=== PATIENT | male | born 1955 | race Caucasian/White ===

== ENCOUNTER 2017-06-18 04:06 | Inpatient (IN) | payer MEDICAID ==
[~2017-06-18] VITALS: Ht 188 cm; Wt 82.6 kg
[2017-06-18] MEDS ORDERED: IPRATROPIUM BROMIDE (0.02%) 0.5MG/2.5ML NEB HHN STA (05:51)
[2017-06-18] MEDS ORDERED: METHYLPREDNISOLONE SOD SUCC 125 MG/2 ML VIAL IV STA (05:51)
[2017-06-18] MEDS ORDERED: ALBUTEROL (0.083%) 2.5MG/3ML NEB HHN STA (05:51)
[2017-06-18] MEDS ORDERED: ASPIRIN 81MG TABLET PO ONE (06:00)
[2017-06-18] MEDS ORDERED: MAGNESIUM 2 G PREMIX 50 ML IV ONE (06:00)
[2017-06-18] MEDS ORDERED: LEVOFLOXACIN 750MG PREMIX 150 ML IV ONE (06:00)
[2017-06-18] MEDS ORDERED: NITROGLYCERIN OINT 1GM/INCH UDPKT TD ONE (06:00)
[2017-06-18 06:28] LABS: BASOPHILS % 0.3 % (0.0-2.0); EOSINOPHILS % 0.1 % (0.0-5.0); HEMATOCRIT. 28.9 % (42.0-52.0); HEMOGLOBIN. 9.6 g/dL (14.0-18.0); LYMPHOCYTES % 8.3 % (20.0-50.0); MEAN CORPUSCULAR HEMOGLOBIN 31.1 pg (28.0-32.0); MEAN CORPUSCULAR VOLUME 93.7 fL (80.0-94.0); MEAN PLATELET VOLUME 8.2 fl (7.4-10.4); MONOCYTES % 7.5 % (2.0-8.0); NEUTROPHILS % 83.8 % (40.0-76.0); PLATELET 410 x1000/uL (130-400); RED BLOOD CELL COUNT 3.09 mill/uL (4.7-6.1)
[2017-06-18 06:34] LABS: CHLORIDE 111 mEq/L (98-107)
[2017-06-18 06:35] LABS: INR 1.1; PROTHROMBIN TIME 11.4 sec (9.4-11.6)
[2017-06-18 06:38] LABS: ETHANOL BLOOD < 10 mg/dL
[2017-06-18 06:58] LABS: BG BASE EXCESS -13.7 mmol/L (-2.0-2.0); BG FRACTION INSPIRED OXYGEN 40; BG HCO3 ACT 13.9 mmol/L (22.0-26.0); BG METHEMOGLOBIN 0.2 % (0.0-1.5); BG OXYHEMOGLOBIN 97.8 % (94.0-97.0); BG PCO2 38.9 mmHg (35.0-45.0); BG PH 7.172 (7.350-7.450); BG PO2 133.4 mmHg (75.0-100.0); BG SAMPLE SITE RIGHT RADIAL; BG TOTAL HEMOGLOBIN 10.3 g/dL (12.0-18.0); BG VENT MODE MASK - SIMPLE
[2017-06-18] MEDS ORDERED: FUROSEMIDE 100MG/10ML VIAL IV STA (07:17)
[2017-06-18] MEDS ORDERED: SODIUM POLYSTYRENE SULFONATE 15 G/60 ML BOT PO ONE (07:30)
[2017-06-18] MEDS ORDERED: SODIUM BICARBONATE 8.4% 1 MEQ/ML 50ML SYR IV ONE (07:30)
[2017-06-18] MEDS ORDERED: DEXTROSE 50% WATER 50ML SYRINGE IV ONE (07:30)
[2017-06-18] MEDS ORDERED: CALCIUM CHLORIDE 1GM/10ML SYR IV ONE (07:30)
[2017-06-18] MEDS ORDERED: INSULIN REGULAR (HUMULIN R) 300UNITS/3ML IV ONE (07:30)
[2017-06-18] MEDS ORDERED: LIDOCAINE HCL/PF 1% 10 MG/ML 5ML VIAL ONE (08:16)
[2017-06-18] MEDS ORDERED: SODIUM POLYSTYRENE SULFONATE 15 G/60 ML BOT PR ONE (08:45)
[2017-06-18 09:09] LABS: BG BASE EXCESS -10.6 mmol/L (-2.0-2.0); BG BILEVEL POS AIRWAY PRESSURE ST=15/5; BG CARBOXYHEMOGLOBIN 0.3 % (0.5-1.5); BG DEOXYHEMOGLOBIN 0.9 % (0.0-5.0); BG FRACTION INSPIRED OXYGEN 50; BG HCO3 ACT 15.7 mmol/L (22.0-26.0); BG METHEMOGLOBIN 0.3 % (0.0-1.5); BG OXYGEN SATURATION 99.1 % (92.0-98.5); BG OXYHEMOGLOBIN 98.5 % (94.0-97.0); BG PCO2 36.5 mmHg (35.0-45.0); BG PH 7.251 (7.350-7.450); BG PO2 238.6 mmHg (75.0-100.0); BG PRESSURE SUPPORT 10; BG SAMPLE SITE RIGHT RADIAL; BG TOTAL HEMOGLOBIN 9.2 g/dL (12.0-18.0); BG VENT MODE MASK - BIPAP; BG VENT RATE 12 set
[2017-06-18] MEDS ORDERED: HYDROCODONE/ACETAMINOPHEN 5/325MG TABLET PO PRN (10:30)
[2017-06-18] MEDS ORDERED: ONDANSETRON HCL 4MG/2ML VIAL IV PRN (10:30)
[2017-06-18] MEDS ORDERED: DOCUSATE SODIUM 100MG CAPSULE PO PRN (10:30)
[2017-06-18] MEDS ORDERED: MAGNESIUM/ALUMINUM HYDROXIDE/SIMETHICONE 30ML UDC PO PRN (10:30)
[2017-06-18] MEDS ORDERED: NA PHOS,M-B/NA PHOS,DI-BA ENEMA 118ML PR PRN (10:30)
[2017-06-18] MEDS ORDERED: DIPHENHYDRAMINE 50MG/ML VIAL IV PRN (10:30)
[2017-06-18] MEDS ORDERED: MORPHINE SULFATE 4 MG/ML CPJ (NOT FOR IM USE) IV PRN (10:30)
[2017-06-18] MEDS ORDERED: GUAIFENESIN 200MG/10ML SUGAR FREE UDC PO PRN (10:30)
[2017-06-18] MEDS ORDERED: CLONIDINE 0.1MG TABLET PO PRN (10:30)
[2017-06-18] MEDS ORDERED: IPRATROPIUM/ALBUTEROL 0.5-3(2.5)MG/3ML NEB INH PRN (10:30)
[2017-06-18 10:57] LABS: HEPATITIS B SURFACE ANTIGEN NEGATIVE
[2017-06-18 11:25] LABS: HEPATITIS B CORE AB IGM NEGATIVE
[2017-06-18 11:27] LABS: HEPATITIS A AB IGM NEGATIVE (NEGATIVE)
[2017-06-18 14:00] VITALS: BP 132/84
[2017-06-18] MEDS: ENOXAPARIN 30MG/0.3ML SYR SUBCUT SCH (14:00)
[2017-06-18] MEDS: LORAZEPAM 2MG/ML CPJ IV PRN (21:15)
[2017-06-18] MEDS: ACETAMINOPHEN 325MG TABLET PO PRN (21:15)
[2017-06-19] MEDS: LORAZEPAM 2MG/ML CPJ IV PRN (04:48)
[2017-06-19] MEDS: ACETAMINOPHEN 325MG TABLET PO PRN (04:49)
[2017-06-19 07:00] LABS: BASOPHILS % 0.1 % (0.0-2.0); HEMOGLOBIN. 8.7 g/dL (14.0-18.0); MEAN CORPUSCULAR HEMOGLOBIN 31.1 pg (28.0-32.0); MEAN CORPUSCULAR VOLUME 93.4 fL (80.0-94.0); MEAN PLATELET VOLUME 8.8 fl (7.4-10.4); MONOCYTES % 5.4 % (2.0-8.0); NEUTROPHILS % 84.5 % (40.0-76.0); PLATELET 292 x1000/uL (130-400); RED BLOOD CELL COUNT 2.79 mill/uL (4.7-6.1)
[2017-06-19 07:50] LABS: CHLORIDE 106 mEq/L (98-107)
[2017-06-19 08:00] LABS: LDL CHOLESTEROL 59 mg/dL (5-100)
[2017-06-19 08:02] LABS: HDL CHOLESTEROL 37 mg/dL (40-59)
[2017-06-19 08:03] LABS: T4 FREE 0.83 ng/dL (0.76-1.46)
[2017-06-19] MEDS ORDERED: SODIUM POLYSTYRENE SULFONATE 15 G/60 ML BOT PO SCH (08:45)
[2017-06-19] MEDS ORDERED: ASPIRIN 81MG EC TABLET PO SCH (09:00)
[2017-06-19] MEDS: ENOXAPARIN 30MG/0.3ML SYR SUBCUT SCH (09:01)
[2017-06-21 09:10] LABS: COMPLEMENT C3 42 mg/dL (82-167)
[2017-06-21 15:07] LABS: ANTI-NUCLEAR ANTIBODIES DIRECT Positive (Negative)
== END 2017-06-19 09:40 | disposition left against medical advice (07) | DRG 133 ==
LOC: ER 04:06 → EDBEDREQ 08:58 → EDBEDREQSVC 08:58 → 5EST 09:35 → EDBEDREQ 09:52 → ENRESERV 13:05
PROVIDERS: ADMIT Internal Medicine; ATTEND Internal Medicine
PROC: 02HV33Z Insertion of Infusion Device into Superior Vena Cava, Percutaneous Approach (ICD-10-PCS; principal; 2017-06-18)
PROC: B548ZZA Ultrasonography of Superior Vena Cava, Guidance (ICD-10-PCS; 2017-06-18)
PROC: 5A09357 Assistance with Respiratory Ventilation, Less than 24 Consecutive Hours, Continuous Positive Airway Pressure (ICD-10-PCS; 2017-06-18)
PROC: 5A1D70Z Performance of Urinary Filtration, Intermittent, Less than 6 Hours Per Day (ICD-10-PCS; 2017-06-18)
DX: J96.20 Acute and chronic respiratory failure, unspecified whether with hypoxia or hypercapnia (principal); N17.0 Acute kidney failure with tubular necrosis; E43 Unspecified severe protein-calorie malnutrition; I13.0 Hypertensive heart and chronic kidney disease with heart failure and stage 1 through stage 4 chronic kidney disease, or unspecified chronic kidney disease; E87.2 Acidosis; C95.90 Leukemia, unspecified not having achieved remission; I50.9 Heart failure, unspecified; N18.9 Chronic kidney disease, unspecified; D64.9 Anemia, unspecified; E87.5 Hyperkalemia; F17.200 Nicotine dependence, unspecified, uncomplicated; I25.10 Atherosclerotic heart disease of native coronary artery without angina pectoris; J45.909 Unspecified asthma, uncomplicated; Z53.21 Procedure and treatment not carried out due to patient leaving prior to being seen by health care provider
CPT/HCPCS: 36415; 36569; 36600; 71045; 76937; 80048; 80053; 80061; 82375; 82805; 82962; 83605; 83690; 83880; 84439; 84443; 84484; 85025; 85610; 86038; 86160; 86705; 86709; 86803; 87040; 87340; 87804; 93005; 94640; 96365; 96367; 96375; 99291; C1752; C1893; G0482; J1650; J1815; J1940; J1956; J2060; J2930; J3475; J3490; J7611; L8514